=== PATIENT | male | born 2000 | race American Indian/Alaskan Native ===

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

== ENCOUNTER 2021-02-11 13:40 | Emergency (ER) | payer SELFPAY ==
[2021-02-11 15:29] VITALS: BP 113/68
[2021-02-11] MEDS ORDERED: LIDOCAINE-MPF (1%) 10 MG/1 ML VIAL 5 ML INFILTRATI ONE (16:11)
--- NOTE | 2021-02-11 16:11 | Emergency Department Report ---
ED Male HPI - General Chief complaint: Urogenital-Male Stated complaint: INFECTION Time Seen by Provider: 02/11/21 15:39 Source: patient Mode of arrival: Ambulatory Limitations: No Limitations - History of Present Illness Initial comments: 20-year-old male presents to the ER today with complaints of dysuria, urinary frequency and penile discharge. Patient states that his symptoms started about 1 to 2 weeks ago. He also reports a rash to his penis that he noticed about 3 days ago. Patient states that he had STD testing which included chlamydia, gonorrhea, HIV and syphilis in November at [facility] because he was having similar symptoms. Patient brought his results with him and they were negative. Patient states that his symptoms improved without any treatment but started again about 1 to 2 weeks ago. He states that he has not changed partners since his symptoms started in November. And he denies any new sexual partners. He denies any abdominal pain, back pain, fever or chills. MD Complaint: penile discharge, dysuria -: Gradual (1-2 weeks ) - Related Data Previous Rx's Medication Instructions Recorded Last Taken Type Albuterol Mdi (or & Nicu Only) 2 puff IH QID PRN #1 inhalation 01/25/19 Unknown Rx [ProAir HFA Inhaler] Amoxicillin [Trimox CAP] 500 mg PO Q8H 10 Days #30 capsule 01/25/19 Unknown Rx predniSONE [Deltasone] 40 mg PO QDAY 5 Days #10 tab 01/25/19 Unknown Rx Ibuprofen [Motrin 600 MG tab] 600 mg PO Q8H PRN #30 tablet 05/23/20 Unknown Rx DOXYCYCLINE Hyclate [Vibramycin 100 mg PO Q12HR #14 capsule 02/11/21 Unknown Rx CAP] Valacyclovir HCl [Valtrex] 1,000 mg PO Q12HR #20 tablet 02/11/21 Unknown Rx Allergies Allergy/AdvReac Type Severity Reaction Status Date / Time No Known Allergies Allergy Unverified 01/25/19 17:28 ED Review of Systems ROS: Stated complaint: INFECTION Other details as noted in HPI Comment: All other systems reviewed and negative Constitutional: denies: chills, fever Eyes: denies: eye pain, eye discharge, vision change ENT: denies: ear pain, throat pain Respiratory: denies: cough, shortness of breath, SOB with exertion, SOB at rest, wheezing Cardiovascular: denies: chest pain, palpitations, dyspnea on exertion, edema, syncope, paroxysmal nocturnal dyspnea Gastrointestinal: denies: abdominal pain, nausea, vomiting, diarrhea, constipation, hematemesis, melena, hematochezia Genitourinary: dysuria, frequency, discharge. denies: testicular pain, testicular mass Skin: rash Neurological: denies: headache, weakness, numbness, paresthesias, confusion, abnormal gait, vertigo Psychiatric: denies: anxiety, depression, auditory hallucinations, visual hallucinations, homicidal thoughts, suicidal thoughts Hematological/Lymphatic: denies: easy bleeding, easy bruising ED Past Medical Hx - Past Medical History Previous Medical History?: No - Surgical History Past Surgical History?: No - Social History Smoking Status: Never Smoker Substance Use Type: None - Medications Home Medications: Home Medications Medication Instructions Recorded Confirmed Last Taken Type Albuterol Mdi (or & Nicu Only) 2 puff IH QID PRN #1 inhalation 01/25/19 Unknown Rx [ProAir HFA Inhaler] Amoxicillin [Trimox CAP] 500 mg PO Q8H 10 Days #30 capsule 01/25/19 Unknown Rx predniSONE [Deltasone] 40 mg PO QDAY 5 Days #10 tab 01/25/19 Unknown Rx Ibuprofen [Motrin 600 MG tab] 600 mg PO Q8H PRN #30 tablet 05/23/20 Unknown Rx DOXYCYCLINE Hyclate [Vibramycin 100 mg PO Q12HR #14 capsule 02/11/21 Unknown Rx CAP] Valacyclovir HCl [Valtrex] 1,000 mg PO Q12HR #20 tablet 02/11/21 Unknown Rx ED Physical Exam - General Limitations: No Limitations General appearance: alert, in no apparent distress - Head Head exam: Present: atraumatic, normocephalic, normal inspection - Neck Neck exam: Present: normal inspection, full ROM. Absent: meningismus - Respiratory Respiratory exam: Absent: respiratory distress - Cardiovascular Cardiovascular Exam: Present: regular rate, normal rhythm, normal heart sounds - GI/Abdominal GI/Abdominal exam: Present: soft. Absent: distended, tenderness, guarding - exam: Present: urethral discharge (moderate yellow discharge). Absent: testicular tenderness, scrotal swelling, vertical testicular lie, circumcision External exam: Present: lesions (Mildly erythematous vesicular rash and patches noted to shaft of penis and they are mildly tender to palpate.) - Neurological Exam Neurological exam: Present: alert, oriented X3, CN II-XII intact, normal gait - Psychiatric Psychiatric exam: Present: normal affect, normal mood ED Course Vital Signs 02/11/21 15:27 Temperature 98.1 F Pulse Rate 82 Respiratory 18 Rate Blood Pressure 113/68 [Right] O2 Sat by Pulse 100 Oximetry ED Medical Decision Making - Medical Decision Making 20-year-old male presents to the ER today with complaints of dysuria, urinary frequency and penile discharge. Patient states that his symptoms started about 1 to 2 weeks ago. He also reports a rash to his penis that he noticed about 3 days ago. Patient states that he had STD testing which included chlamydia, gonorrhea, HIV and syphilis in November at [facility] because he was having similar symptoms. Patient brought his results with him and they were negative. Patient states that his symptoms improved without any treatment but started again about 1 to 2 weeks ago. He states that he has not changed partners since his symptoms started in November. And he denies any new sexual partners. He denies any abdominal pain, back pain, fever or chills. Patient with a vesicular rash to his penis concerning for genital herpes. He also has greenish-yellow penile discharge concerning for gonorrhea chlamydia. Patient given IM dose of Rocephin here. Discussed concerning diagnosis with patient. He will be discharged with a prescription for Valtrex and doxycycline. Informed patient that he can follow-up with the urologist and/or primary care doctor listed on discharge instructions if he wants confirmation of herpes test via lab work. Overall patient is nontoxic, not ill-appearing and is not in any acute distress. His vital signs are stable. He has no abdominal tenderness or testicular tenderness or swelling. He is neurologically intact with a normal gait. Patient expressed understanding of instructions and agree with plan. Patient was stable at time of discharge. Critical care attestation.: If time is entered above; I have spent that time in minutes in the direct care of this critically ill patient, excluding procedure time. ED Disposition Clinical Impression: Urethritis, Genital herpes Disposition: - TO HOME OR SELFCARE Is pt being admited?: No Does the pt Need Aspirin: No Condition: Stable Instructions: Urethritis, Adult, Genital Herpes Additional Instructions: Recommend that you take the Valtrex (will treat for possible genital herpes) and the doxycycline (for UTI and possible chlamydia) as prescribed. You were given an IM shot of Rocephin here in the ER to treat for possible gonorrhea. Your chlamydia and gonorrhea test results should be ready in about 2 to 3 days and you will be notified. Recommend no sexual contact for at least 7 days after treatment. I recommend that your partner also get treated and tested. I recommend that you follow-up with the primary care doctor listed on your discharge instruction of the urologist. Return to the ER if your symptoms changes or worsens in any way. Prescriptions: Valacyclovir HCl [Valtrex] 1,000 mg PO Q12HR #20 tablet DOXYCYCLINE Hyclate [Vibramycin CAP] 100 mg PO Q12HR #14 capsule Referrals: [facility] [Provider Group] - 3-5 Days [facility] [Provider Group] - 3-5 Days Forms: STI Treatment and Prevention Time of Disposition: 16:29
[2021-02-11 16:46] LABS: Bilirubin,Urine NEG (Negative); Blood,Urine NEG (Negative); Color,Urine Amber (Yellow); Mucus,Urine 3+ /HPF
== END 2021-02-11 17:17 | disposition home or self-care (01) ==
LOC: ED 13:40
DX: N34.2 Other urethritis (principal); A60.00 Herpesviral infection of urogenital system, unspecified; Z79.899 Other long term (current) drug therapy
CPT/HCPCS: 81001; 87086; 87591; 96372; 99283; J0696

== ENCOUNTER 2021-02-12 19:59 | Emergency (ER) | payer SELFPAY ==
--- NOTE | 2021-02-12 22:00 | Emergency Department Report ---
- General Chief complaint: Skin/Abscess/Foreign Body Stated complaint: POSSIBLE SPIDER BITE Time Seen by Provider: 02/12/21 21:47 Source: patient Mode of arrival: Ambulatory Limitations: No Limitations - History of Present Illness Initial comments: bump to back of right ear and thinks a spider bite him complaint: insect bite/sting -: Gradual (to right ear region. suspected spider) Tetanus Up to Date: unsure Location: head, face (right ear) Severity: moderate Quality: aching, dull Consistency: constant Improves with: none Worsens with: none Context: none Treatments Prior to Arrival: none - Related Data Previous Rx's Medication Instructions Recorded Last Taken Type Albuterol Mdi (or & Nicu Only) 2 puff IH QID PRN #1 inhalation 01/25/19 Unknown Rx [ProAir HFA Inhaler] Amoxicillin [Trimox CAP] 500 mg PO Q8H 10 Days #30 capsule 01/25/19 Unknown Rx predniSONE [Deltasone] 40 mg PO QDAY 5 Days #10 tab 01/25/19 Unknown Rx Ibuprofen [Motrin 600 MG tab] 600 mg PO Q8H PRN #30 tablet 05/23/20 Unknown Rx DOXYCYCLINE Hyclate [Vibramycin 100 mg PO Q12HR #14 capsule 02/11/21 Unknown Rx CAP] Valacyclovir HCl [Valtrex] 1,000 mg PO Q12HR #20 tablet 02/11/21 Unknown Rx Ketorolac [Toradol] 10 mg PO Q6H PRN #15 tablet 02/12/21 Unknown Rx Sulfamethoxazole/Trimethoprim 1 each PO BID #20 tablet 02/12/21 Unknown Rx [Bactrim Ds] cephALEXin [Keflex] 500 mg PO Q6HR #40 capsule 02/12/21 Unknown Rx Allergies Allergy/AdvReac Type Severity Reaction Status Date / Time No Known Allergies Allergy Unverified 01/25/19 17:28 Abscess Boil HPI - HPI Chief Complaint: Skin/Abscess/Foreign Body Stated Complaint: POSSIBLE SPIDER BITE Time Seen by Provider: 02/12/21 21:47 Home Medications: Previous Rx's Medication Instructions Recorded Last Taken Type Albuterol Mdi (or & Nicu Only) 2 puff IH QID PRN #1 inhalation 01/25/19 Unknown Rx [ProAir HFA Inhaler] Amoxicillin [Trimox CAP] 500 mg PO Q8H 10 Days #30 capsule 01/25/19 Unknown Rx predniSONE [Deltasone] 40 mg PO QDAY 5 Days #10 tab 01/25/19 Unknown Rx Ibuprofen [Motrin 600 MG tab] 600 mg PO Q8H PRN #30 tablet 05/23/20 Unknown Rx DOXYCYCLINE Hyclate [Vibramycin 100 mg PO Q12HR #14 capsule 02/11/21 Unknown Rx CAP] Valacyclovir HCl [Valtrex] 1,000 mg PO Q12HR #20 tablet 02/11/21 Unknown Rx Ketorolac [Toradol] 10 mg PO Q6H PRN #15 tablet 02/12/21 Unknown Rx Sulfamethoxazole/Trimethoprim 1 each PO BID #20 tablet 02/12/21 Unknown Rx [Bactrim Ds] cephALEXin [Keflex] 500 mg PO Q6HR #40 capsule 02/12/21 Unknown Rx Allergies/Adverse Reactions: Allergies Allergy/AdvReac Type Severity Reaction Status Date / Time No Known Allergies Allergy Unverified 01/25/19 17:28 ED Review of Systems ROS: Stated complaint: POSSIBLE SPIDER BITE Other details as noted in HPI Comment: All other systems reviewed and negative ED Past Medical Hx - Past Medical History Previous Medical History?: No - Surgical History Past Surgical History?: No - Social History Smoking Status: Former Smoker Substance Use Type: Marijuana - Medications Home Medications: Home Medications Medication Instructions Recorded Confirmed Last Taken Type Albuterol Mdi (or & Nicu Only) 2 puff IH QID PRN #1 inhalation 01/25/19 Unknown Rx [ProAir HFA Inhaler] Amoxicillin [Trimox CAP] 500 mg PO Q8H 10 Days #30 capsule 01/25/19 Unknown Rx predniSONE [Deltasone] 40 mg PO QDAY 5 Days #10 tab 01/25/19 Unknown Rx Ibuprofen [Motrin 600 MG tab] 600 mg PO Q8H PRN #30 tablet 05/23/20 Unknown Rx DOXYCYCLINE Hyclate [Vibramycin 100 mg PO Q12HR #14 capsule 02/11/21 Unknown Rx CAP] Valacyclovir HCl [Valtrex] 1,000 mg PO Q12HR #20 tablet 02/11/21 Unknown Rx Ketorolac [Toradol] 10 mg PO Q6H PRN #15 tablet 02/12/21 Unknown Rx Sulfamethoxazole/Trimethoprim 1 each PO BID #20 tablet 02/12/21 Unknown Rx [Bactrim Ds] cephALEXin [Keflex] 500 mg PO Q6HR #40 capsule 02/12/21 Unknown Rx ED Physical Exam - General Limitations: No Limitations General appearance: alert, in no apparent distress - Head Head exam: Present: atraumatic, normocephalic - Eye Eye exam: Present: normal appearance, PERRL, EOMI, scleral icterus - ENT ENT exam: Present: mucous membranes moist, other (tender nodule behind right ear early bite infecdtion. no lymphangitis. no neck pain no sore throat. no sob. ) - Neck Neck exam: Present: normal inspection - Respiratory Respiratory exam: Present: normal lung sounds bilaterally. Absent: respiratory distress, wheezes, rales, rhonchi, chest wall tenderness, accessory muscle use, decreased breath sounds - Cardiovascular Cardiovascular Exam: Present: regular rate, normal rhythm. Absent: systolic murmur, diastolic murmur, rubs, gallop - GI/Abdominal GI/Abdominal exam: Present: soft, normal bowel sounds - Rectal Rectal exam: Present: deferred - Extremities Exam Extremities exam: Present: normal inspection - Back Exam Back exam: Present: normal inspection - Neurological Exam Neurological exam: Present: alert, oriented X3 - Psychiatric Psychiatric exam: Present: normal affect, normal mood - Skin Skin exam: Present: warm, dry, intact, normal color. Absent: rash Critical care attestation.: If time is entered above; I have spent that time in minutes in the direct care of this critically ill patient, excluding procedure time. ED Disposition Clinical Impression: Insect bite Disposition: DC-01 TO HOME OR SELFCARE Is pt being admited?: No Does the pt Need Aspirin: No Condition: Stable Instructions: Insect Bite, Adult Prescriptions: Sulfamethoxazole/Trimethoprim [Bactrim Ds] 1 each PO BID #20 tablet cephALEXin [Keflex] 500 mg PO Q6HR #40 capsule Ketorolac [Toradol] 10 mg PO Q6H PRN #15 tablet PRN Reason: Pain Referrals: [facility] [Provider Group] - 3-5 Days
== END 2021-02-12 22:30 | disposition home or self-care (01) ==
LOC: ED 19:59
CPT/HCPCS: 99282

== ENCOUNTER 2021-02-18 11:48 | Emergency (ER) | payer SELFPAY ==
[2021-02-18 12:23] VITALS: BP 121/60
== END 2021-02-18 13:54 ==
LOC: ED 11:48
DX: Z13.89 Encounter for screening for other disorder (principal); Z53.21 Procedure and treatment not carried out due to patient leaving prior to being seen by health care provider

== ENCOUNTER 2021-05-30 10:31 | Emergency (ER) | payer SELFPAY ==
[2021-05-30 11:02] VITALS: BP 118/82
--- NOTE | 2021-05-30 11:32 | Emergency Department Report ---
ED General Adult HPI - General Chief complaint: Skin Rash Stated complaint: RASH Time Seen by Provider: 05/30/21 11:05 Source: patient Mode of arrival: Ambulatory Limitations: No Limitations - History of Present Illness Initial comments: 20-year-old -[place] male patient presents with complaints of penile rash x2 weeks and right ear and left facial rash for the past few days. Patient states he has had a rash on his penile area 2 other times and it resolved on its own. He states the rash is a little itchy, but denies any pain, penile swelli ng, redness, or penile discharge. He reports he believes he is having an allergic reaction to an unknown skin product and has been putting rubbing alcohol on it. After placing rubbing alcohol, he reports the skin the became irritated and dry and began to peel. He denies any past medical history or fever/chills/sweats. - Related Data Previous Rx's Medication Instructions Recorded Last Taken Type Albuterol Mdi (or & Nicu Only) 2 puff IH QID PRN #1 inhalation 01/25/19 Unknown Rx [ProAir HFA Inhaler] Amoxicillin [Trimox CAP] 500 mg PO Q8H 10 Days #30 capsule 01/25/19 Unknown Rx predniSONE [Deltasone] 40 mg PO QDAY 5 Days #10 tab 01/25/19 Unknown Rx Ibuprofen [Motrin 600 MG tab] 600 mg PO Q8H PRN #30 tablet 05/23/20 Unknown Rx DOXYCYCLINE Hyclate [Vibramycin 100 mg PO Q12HR #14 capsule 02/11/21 Unknown Rx CAP] Valacyclovir HCl [Valtrex] 1,000 mg PO Q12HR #20 tablet 02/11/21 Unknown Rx Ketorolac [Toradol] 10 mg PO Q6H PRN #15 tablet 02/12/21 Unknown Rx Sulfamethoxazole/Trimethoprim 1 each PO BID #20 tablet 02/12/21 Unknown Rx [Bactrim Ds] cephALEXin [Keflex] 500 mg PO Q6HR #40 capsule 02/12/21 Unknown Rx predniSONE 10 mg PO BID 3 Days #6 tab 05/30/21 Unknown Rx Allergies Allergy/AdvReac Type Severity Reaction Status Date / Time No Known Allergies Allergy Unverified 01/25/19 17:28 ED Review of Systems ROS: Stated complaint: RASH Other details as noted in HPI Constitutional: denies: chills, fever, malaise Genitourinary: denies: urgency, dysuria, frequency, hematuria, discharge, testicular pain, testicular mass Musculoskeletal: denies: joint swelling, arthralgia Skin: rash. denies: change in color Neurological: denies: headache, numbness, paresthesias Hematological/Lymphatic: denies: swollen glands ED Past Medical Hx - Past Medical History Previous Medical History?: No - Surgical History Past Surgical History?: No - Social History Smoking Status: Former Smoker Substance Use Type: Marijuana - Medications Home Medications: Home Medications Medication Instructions Recorded Confirmed Last Taken Type Albuterol Mdi (or & Nicu Only) 2 puff IH QID PRN #1 inhalation 01/25/19 Unknown Rx [ProAir HFA Inhaler] Amoxicillin [Trimox CAP] 500 mg PO Q8H 10 Days #30 capsule 01/25/19 Unknown Rx predniSONE [Deltasone] 40 mg PO QDAY 5 Days #10 tab 01/25/19 Unknown Rx Ibuprofen [Motrin 600 MG tab] 600 mg PO Q8H PRN #30 tablet 05/23/20 Unknown Rx DOXYCYCLINE Hyclate [Vibramycin 100 mg PO Q12HR #14 capsule 02/11/21 Unknown Rx CAP] Valacyclovir HCl [Valtrex] 1,000 mg PO Q12HR #20 tablet 02/11/21 Unknown Rx Ketorolac [Toradol] 10 mg PO Q6H PRN #15 tablet 02/12/21 Unknown Rx Sulfamethoxazole/Trimethoprim 1 each PO BID #20 tablet 02/12/21 Unknown Rx [Bactrim Ds] cephALEXin [Keflex] 500 mg PO Q6HR #40 capsule 02/12/21 Unknown Rx predniSONE 10 mg PO BID 3 Days #6 tab 05/30/21 Unknown Rx ED Physical Exam - General Limitations: No Limitations General appearance: alert, in no apparent distress - Head Head exam: Present: atraumatic, normocephalic - Eye Eye exam: Present: normal appearance - Respiratory Respiratory exam: Absent: respiratory distress - exam: Present: other (Small papular herpetic rash noted to distal shaft without surrounding erythema) - Neurological Exam Neurological exam: Present: alert, oriented X3 - Psychiatric Psychiatric exam: Present: normal affect, normal mood - Skin Skin exam: Present: warm, dry, normal color, rash, other (Dry patchy rash noted to left face and minimally to right earlobe without surrounding erythema; there is a 2 cm very superficial area of open skin noted without drainage) ED Course Vital Signs 05/30/21 11:00 Temperature 98.9 F Pulse Rate 67 Respiratory 16 Rate Blood Pressure 118/82 O2 Sat by Pulse 98 Oximetry ED Medical Decision Making - Medical Decision Making 20-year-old -[place] male patient presents with complaints of penile rash x2 weeks and right ear and left facial rash for the past few days. Patient states he has had a rash on his penile area 2 other times and it resolved on its own. He states the rash is a little itchy, but denies any pain, penile swelling, redness, or penile discharge. He reports he believes he is having an allergic reaction to an unknown skin product and has been putting rubbing alcohol on it. After placing rubbing alcohol, he reports the skin the became irritated and dry and began to peel. He denies any past medical history or fever/chills/sweats. Rash on face and ear appears to be more of irritation due to rubbing alcohol. Genital herpes noted to penile shaft. Recommend patient follows up with primary care. Neosporin topically recommended 3 times a day for at least 4 to 5 days. Low-dose prednisone given to help with inflammation. He is well-appearing, his vitals are normal, he is stable for discharge home. Discussed signs symptoms that should prompt immediate return to the emergency department in detail patient verbalized understanding. Critical care attestation.: If time is entered above; I have spent that time in minutes in the direct care of this critically ill patient, excluding procedure time. ED Disposition Clinical Impression: Genital herpes, Rash of face Disposition: 01 HOME / SELF CARE / HOMELESS Is pt being admited?: No Condition: Stable Instructions: Rash, Adult, Genital Herpes Prescriptions: predniSONE 10 mg PO BID 3 Days #6 tab Referrals: [facility] [Provider Group] - 3-5 Days
== END 2021-05-30 12:39 | disposition home or self-care (01) ==
LOC: ED 10:31
DX: A60.00 Herpesviral infection of urogenital system, unspecified (principal); F12.90 Cannabis use, unspecified, uncomplicated; Z87.442 Personal history of urinary calculi; Z79.899 Other long term (current) drug therapy
CPT/HCPCS: 99281